=== PATIENT | male | born 1970 | race Caucasian/White ===

== ENCOUNTER 2021-01-31 13:02 | Inpatient (IN) ==
[2021-01-31] MEDS ORDERED: dexAMETHasone**PF** 10 MG/ML VIAL IV ONE (13:13)
[2021-01-31] MEDS ORDERED: SODIUM CHLORIDE 0.9% 1000ML 1,000 ML IV ONE (13:39)
--- NOTE | 2021-01-31 13:51 | Emergency Department Note ---
History of Present Illness General Chief complaint: Illness Stated complaint: COVID+, RAFAEL Siegel DR CARNEY Time Seen by Provider: 01/31/21 13:13 Source: patient History of Present Illness Provider complaint: Signs and Symptoms of COVID-19 (e.g., fever, dry cough, and/or SOB), no margi Onset (ago): day(s) (12) Location: chest Severity: moderate Pain Consistency: + intermittent Quality: + aching and + other (Fever and cough with malaise) Relieved By: + none Exacerbated By: + other (Exertion) Associated symptoms: + cough, + fever/chills, + headaches, + malaise and + shortness of breath (Only with exertion); no chest pain or no nausea/vomiting This is a 50-year-old male who was diagnosed with COVID-19 sent over from his doctor's office for low O2 saturation. The patient states that he got sick about 12 days ago. He developed a headache, malaise and fevers. He has a mild cough as well. He states he is only short of breath when he exerts himself but feels fine at rest. He has had no leg swelling or pain. He went to his doctor's office today and was found to have a O2 saturation in the 80s. He denies any loss of taste or smell or diarrhea. He has had no abdominal pain, vomiting, or urinary symptoms. He is not vaccinated for COVID-19. Allergies Allergy/AdvReac Type Severity Reaction Status Date / Time No Known Allergies Allergy Unverified 03/08/17 18:52 Past Med/Surg History Medical History (Updated 01/31/21 @ 15:50 by Gerri Martinez PA-C) Dyslipidemia Prediabetes Surgical History (Updated 01/31/21 @ 15:49 by Gerri Martinez PA-C) History of dental surgery Family History Other Multiple sclerosis Social History Smoking Status: Never smoker Hx Alcohol Use: Yes Alcohol type: beer Alcohol Intake Frequency: 2-3 x/Week Alcohol Intake Frequency Comment: no drink in past 12 days Hx Substance Use: No Preferred Language: French Feels Safe at Home: Yes Review of Systems See HPI for pertinent positives & negatives. and A total of 10 systems reviewed and were otherwise negative Physical Exam Vital Signs Vital Signs - 24 hr 01/31/21 13:07 01/31/21 13:35 01/31/21 13:49 Temperature 35.3 C L Temperature Source Temporal Artery Scan Pulse Rate 98 H 86 Pulse Rate from SpO2 Sensor Pulse Rhythm Regular Pulse Strength Normal Respiratory Rate 20 28 H Respiratory Effort / Characteristics Non-Labored Spontaneous Respiratory Depth Normal Respiratory Pattern Regular Blood Pressure 133/66 Blood Pressure Mean 88 Blood Pressure Position Sitting Pulse Oximetry 84 L 96 97 Oxygen Delivery Method Room Air Nasal Cannula Nasal Cannula Oxygen Flow Rate 3 3 Sepsis Recent Fever Within 48 Hours Yes Sepsis New/Unexplained Change in Mental Status No Sepsis Action Taken by Nursing No Action Required 01/31/21 14:00 01/31/21 14:30 01/31/21 15:00 Temperature Temperature Source Pulse Rate 87 80 86 Pulse Rate from SpO2 Sensor 86 Pulse Rhythm Pulse Strength Respiratory Rate 23 21 20 Respiratory Effort / Characteristics Respiratory Depth Respiratory Pattern Blood Pressure 127/81 125/87 Blood Pressure Mean 96 99 Blood Pressure Position Pulse Oximetry 97 95 96 Oxygen Delivery Method Nasal Cannula Nasal Cannula Room Air Oxygen Flow Rate 3 3 Sepsis Recent Fever Within 48 Hours Sepsis New/Unexplained Change in Mental Status Sepsis Action Taken by Nursing 01/31/21 15:30 01/31/21 16:00 01/31/21 16:30 Temperature Temperature Source Pulse Rate 87 82 78 Pulse Rate from SpO2 Sensor 87 82 77 Pulse Rhythm Pulse Strength Respiratory Rate 22 29 H 25 H Respiratory Effort / Characteristics Respiratory Depth Respiratory Pattern Blood Pressure 119/75 121/78 Blood Pressure Mean 89 92 Blood Pressure Position Pulse Oximetry 97 94 96 Oxygen Delivery Method Room Air Oxygen Flow Rate Sepsis Recent Fever Within 48 Hours Sepsis New/Unexplained Change in Mental Status Sepsis Action Taken by Nursing 01/31/21 17:00 Temperature Temperature Source Pulse Rate 81 Pulse Rate from SpO2 Sensor 85 Pulse Rhythm Pulse Strength Respiratory Rate 28 H Respiratory Effort / Characteristics Respiratory Depth Respiratory Pattern Blood Pressure 131/89 Blood Pressure Mean 103 Blood Pressure Position Pulse Oximetry 96 Oxygen Delivery Method Oxygen Flow Rate Sepsis Recent Fever Within 48 Hours Sepsis New/Unexplained Change in Mental Status Sepsis Action Taken by Nursing Constitutional: Vital signs reviewed. O2 saturation is 84% on room air. Eyes: Pupils are equal round reactive to light. Conjunctiva are noninjected. ENT: Pharynx is clear without erythema or exudate. Mucous membranes are dry. Neck supple without meningeal signs. Respiratory: Clear to auscultation bilaterally. Breath sounds are equal bilaterally. Cardiovascular: Regular rate and rhythm. No rubs or gallops. GI: Soft, nondistended and nontender. Bowel sounds are present. Musculoskeletal: No peripheral edema. No lower extremity tenderness. Integumentary: No cyanosis. or jaundice. Neurological: The patient is awake and alert. No focal deficits. Psychiatric: Normal affect. Not anxious appearing. Course Administered Medications Discontinued Medications Dexamethasone Sodium Phosphate (DexamethasonePf 10 Mg/Ml Vial) 6 mg IV NOW ONE Stop: 01/31/21 13:14 Last Admin: 01/31/21 13:52 Dose: 6 mg Documented by: [id number] Sodium Chloride (Nss 1000ml) 1,000 mls @ 999 mls/hr IV .Q1H1M ONE Stop: 01/31/21 14:39 Last Infusion: 01/31/21 14:50 Dose: 0 mls/hr Documented by: [id number] Admin: 01/31/21 13:52 Dose: 999 mls/hr Documented by: [id number] Ioversol (Optiray 320 125ml) 120 ml IV ONCE ONE Stop: 01/31/21 14:43 Last Admin: 01/31/21 14:43 Dose: 120 ml Documented by: [id number] Medical Decision Making Differential Diagnosis COVID-19, multifocal pneumonia, pulmonary embolism, myocarditis, pericarditis Medical Records Attestation: I reviewed the patient's medical records. I did perform a limited focused review of portions of the patient's old chart on the electronic medical record. The patient has had no recent pertinent visits to this hospital. Home Medications Current Medication List: was personally reviewed by me Laboratory Data Attestation: I reviewed the patient's lab results. Result diagrams: 01/31/21 13:47 01/31/21 13:47 Lab Results 01/31/21 01/31/21 01/31/21 Range/Units 13:47 13:47 13:47 WBC 7.34 (4.8-10.8) K/uL RBC 5.26 (4.7-6.1) M/uL Hgb 16.6 (14.0-18.0) g/dL Hct 47.1 (42-52) % MCV 89.5 (80-100) fL MCH 31.6 (25-34) pg MCHC 35.2 (32-36) g/dL RDW Std Deviation 42.5 (36.4-46.3) fL RDW Coeff of Simon 12.9 (11.5-14.5) % Plt Count 160 (130-400) K/uL MPV 10.4 (7.4-10.4) fL Immature Gran % (Auto) 1.0 % Neut % (Auto) 81.3 % Lymph % (Auto) 12.0 % Kay % (Auto) 5.4 % Eos % (Auto) 0.0 % Baso % (Auto) 0.3 % Neut # (Auto) 5.97 (1.4-6.5) K/uL Lymph # (Auto) 0.88 L (1.2-3.4) K/uL Kay # (Auto) 0.40 (0.11-0.59) K/uL Eos # (Auto) 0.00 (0-0.5) K/uL Baso # (Auto) 0.02 (0-0.2) K/uL Immature Gran # (Auto) 0.07 H (0.00-0.02) K/uL PT 10.0 (9.0-12.0) Seconds INR 1.0 (0.9-1.1) APTT 28.7 (21.0-31.0) Seconds PTT Ratio 1.1 D-Dimer 1290 H* (0-500) ug/L FEU Sodium 132 L (136-145) mmol/L Potassium 3.7 (3.5-5.1) mmol/L Chloride 96 L (98-107) mmol/L Carbon Dioxide 30 (21-32) mmol/L Anion Gap 6.0 (3-11) BUN 13 (7-18) mg/dl Creatinine 1.16 (0.6-1.4) mg/dl Est Cr Clr Drug Dosing 101.2 ml/min Est GFR ( Amer) 85.8 ml/min Est GFR (Non-Af Amer) 74.1 ml/min BUN/Creatinine Ratio 11.6 (10-20) Glucose 120 H (70-99) mg/dl Calcium 9.0 (8.5-10.1) mg/dl Total Bilirubin 0.6 (0.2-1) mg/dl AST 134 H (15-37) U/L ALT 108 H (12-78) U/L Alkaline Phosphatase 94 (45-117) U/L Troponin I < 0.015 (0-0.045) ng/ml C-Reactive Protein 7.42 H (0-0.29) mg/dl Total Protein 7.2 (6.4-8.2) gm/dl Albumin 3.1 L (3.4-5.0) gm/dl Globulin 4.1 H (2.5-4.0) gm/dl Albumin/Globulin Ratio 0.8 L (0.9-2) Urine Color Urine Appearance (Clear) Urine pH (4.5-7.5) Ur Specific Hartman (1.000-1.030) Urine Protein (Negative) Urine Glucose (UA) (Negative) Urine Ketones (Negative) Urine Blood (Negative) Urine Nitrite (Negative) Urine Bilirubin (Negative) Urine Urobilinogen (Negative) Ur Leukocyte Esterase (Negative) Urine WBC (Auto) (0-5) /hpf Urine RBC (Auto) (0-4) /hpf U Hyaline Cast (Auto) (0-5) /lpf U Epithel Cells (Auto) (0-5) /lpf Urine Bacteria (Auto) (Negative) COVID-19 Eval Order SARS-CoV-2 (PCR) (Negative) 01/31/21 01/31/21 01/31/21 Range/Units 13:47 14:52 16:15 WBC (4.8-10.8) K/uL RBC (4.7-6.1) M/uL Hgb (14.0-18.0) g/dL Hct (42-52) % MCV (80-100) fL MCH (25-34) pg MCHC (32-36) g/dL RDW Std Deviation (36.4-46.3) fL RDW Coeff of Simon (11.5-14.5) % Plt Count (130-400) K/uL MPV (7.4-10.4) fL Immature Gran % (Auto) % Neut % (Auto) % Lymph % (Auto) % Kay % (Auto) % Eos % (Auto) % Baso % (Auto) % Neut # (Auto) (1.4-6.5) K/uL Lymph # (Auto) (1.2-3.4) K/uL Kay # (Auto) (0.11-0.59) K/uL Eos # (Auto) (0-0.5) K/uL Baso # (Auto) (0-0.2) K/uL Immature Gran # (Auto) (0.00-0.02) K/uL PT (9.0-12.0) Seconds INR (0.9-1.1) APTT (21.0-31.0) Seconds PTT Ratio D-Dimer (0-500) ug/L FEU Sodium (136-145) mmol/L Potassium (3.5-5.1) mmol/L Chloride (98-107) mmol/L Carbon Dioxide (21-32) mmol/L Anion Gap (3-11) BUN (7-18) mg/dl Creatinine (0.6-1.4) mg/dl Est Cr Clr Drug Dosing ml/min Est GFR ( Amer) ml/min Est GFR (Non-Af Amer) ml/min BUN/Creatinine Ratio (10-20) Glucose (70-99) mg/dl Calcium (8.5-10.1) mg/dl Total Bilirubin (0.2-1) mg/dl AST (15-37) U/L ALT (12-78) U/L Alkaline Phosphatase (45-117) U/L Troponin I (0-0.045) ng/ml C-Reactive Protein Cancelled (0-0.29) mg/dl Total Protein (6.4-8.2) gm/dl Albumin (3.4-5.0) gm/dl Globulin (2.5-4.0) gm/dl Albumin/Globulin Ratio (0.9-2) Urine Color Dark Yellow Urine Appearance Clear (Clear) Urine pH 5.5 (4.5-7.5) Ur Specific Hartman > 1.045 H (1.000-1.030) Urine Protein 2+ H (Negative) Urine Glucose (UA) Negative (Negative) Urine Ketones Trace H (Negative) Urine Blood Negative (Negative) Urine Nitrite Negative (Negative) Urine Bilirubin Negative (Negative) Urine Urobilinogen Negative (Negative) Ur Leukocyte Esterase Negative (Negative) Urine WBC (Auto) 1-5 (0-5) /hpf Urine RBC (Auto) 0-4 (0-4) /hpf U Hyaline Cast (Auto) 10-30 H (0-5) /lpf U Epithel Cells (Auto) 20-30 H (0-5) /lpf Urine Bacteria (Auto) Negative (Negative) COVID-19 Eval Order Covid19 at [facility] SARS-CoV-2 (PCR) (Negative) 01/31/21 Range/Units 16:15 WBC (4.8-10.8) K/uL RBC (4.7-6.1) M/uL Hgb (14.0-18.0) g/dL Hct (42-52) % MCV (80-100) fL MCH (25-34) pg MCHC (32-36) g/dL RDW Std Deviation (36.4-46.3) fL RDW Coeff of Simon (11.5-14.5) % Plt Count (130-400) K/uL MPV (7.4-10.4) fL Immature Gran % (Auto) % Neut % (Auto) % Lymph % (Auto) % Kay % (Auto) % Eos % (Auto) % Baso % (Auto) % Neut # (Auto) (1.4-6.5) K/uL Lymph # (Auto) (1.2-3.4) K/uL Kay # (Auto) (0.11-0.59) K/uL Eos # (Auto) (0-0.5) K/uL Baso # (Auto) (0-0.2) K/uL Immature Gran # (Auto) (0.00-0.02) K/uL PT (9.0-12.0) Seconds INR (0.9-1.1) APTT (21.0-31.0) Seconds PTT Ratio D-Dimer (0-500) ug/L FEU Sodium (136-145) mmol/L Potassium (3.5-5.1) mmol/L Chloride (98-107) mmol/L Carbon Dioxide (21-32) mmol/L Anion Gap (3-11) BUN (7-18) mg/dl Creatinine (0.6-1.4) mg/dl Est Cr Clr Drug Dosing ml/min Est GFR ( Amer) ml/min Est GFR (Non-Af Amer) ml/min BUN/Creatinine Ratio (10-20) Glucose (70-99) mg/dl Calcium (8.5-10.1) mg/dl Total Bilirubin (0.2-1) mg/dl AST (15-37) U/L ALT (12-78) U/L Alkaline Phosphatase (45-117) U/L Troponin I (0-0.045) ng/ml C-Reactive Protein (0-0.29) mg/dl Total Protein (6.4-8.2) gm/dl Albumin (3.4-5.0) gm/dl Globulin (2.5-4.0) gm/dl Albumin/Globulin Ratio (0.9-2) Urine Color Urine Appearance (Clear) Urine pH (4.5-7.5) Ur Specific Hartman (1.000-1.030) Urine Protein (Negative) Urine Glucose (UA) (Negative) Urine Ketones (Negative) Urine Blood (Negative) Urine Nitrite (Negative) Urine Bilirubin (Negative) Urine Urobilinogen (Negative) Ur Leukocyte Esterase (Negative) Urine WBC (Auto) (0-5) /hpf Urine RBC (Auto) (0-4) /hpf U Hyaline Cast (Auto) (0-5) /lpf U Epithel Cells (Auto) (0-5) /lpf Urine Bacteria (Auto) (Negative) COVID-19 Eval Order SARS-CoV-2 (PCR) POSITIVE A* (Negative) Imaging Data Radiologist's Impression: Chest X-Ray 01/31/21 13:14 XR chest 1V portable HISTORY: 50 years-old Male Dyspnea acute shortness breath with weakness. COVID Positive. COMPARISON: Chest radiograph 03/08/2017 TECHNIQUE: Portable upright AP view the chest FINDINGS: Cardiac silhouette is upper limits of normal in size. Ill-defined bilateral airspace opacities are noted within a mid lung predominant distribution. No pneumothorax, pleural effusion or overt pulmonary edema. No acute fracture. IMPRESSION: Bilateral airspace opacities are suggestive of viral pneumonia. ACT 112: Negative or not required by law. The above report was generated using voice recognition software. It may contain grammatical, syntax or spelling errors. Electronically signed by: Dwayne Lopez M.D. 01/31/2021 2:25 PM Chest CTA 01/31/21 14:20 CHEST CTA for PULMONARY ARTERIES CT DOSE: 576.96 mGycm HISTORY: hypoxia covid eval for PE TECHNIQUE: Multiaxial CT images of the chest were performed following the intravenous administration of contrast to evaluate the pulmonary arteries. Maximal intensity projection images were also obtained. A dose lowering technique was utilized adhering to the principles of ALARA. COMPARISON STUDY: None. FINDINGS: Normal caliber thoracic aorta with no evidence for dissection. The heart is normal in size. No pleural or pericardial effusions. No filling defects within the pulmonary arteries to suggest a pulmonary embolus. Limited views of the upper abdomen demonstrate a normal liver, spleen, and adrenal glands. Normal esophagus. The thyroid gland enhances normally. Mild mediastinal and bilateral hilar lymphadenopathy. This is likely reactive. No suspicious lytic are blastic osseous lesions. No pneumothorax. The central airways are patent. Extensive multifocal groundglass airspace opacities seen throughout the lungs consistent with a viral pneumonia. IMPRESSION: 1. No evidence for pulmonary embolus. 2. Excessive groundglass airspace opacities seen throughout the lungs consistent with a multifocal viral pneumonia. 3. Mild mediastinal and bilateral hilar lymphadenopathy. This is likely reactive. ACT 112: Negative or not required by law. Electronically signed by: Allen Mishra M.D. 01/31/2021 2:58 PM ECG Data Attestation: I personally reviewed and interpreted this ECG as follows: Indication: + SOB/dyspnea Rate (beats per minute): 84 Rhythm: + normal sinus ECG [place]: + Normal ECG ST segments: + T-wave inversions ECG Findings: no PVCs MDM Narrative I did evaluate the patient as noted above. The patient was diagnosed with Covid about a week ago. He has had symptoms for about 12 days. He is sent here from his doctor's office because he is hypoxemic with a room air saturation of 84%. He was placed in isolation and given oxygen via nasal cannula. IV access was established. I did place an order for continuous cardiac monitoring. The monitor showed normal sinus rhythm at a rate of 80 bpm. I did order and personally review the patient's 12-lead EKG as described above. He has some nonspecific T wave changes. He denies having any chest discomfort. He states he is only short of breath when he exerts himself. I did order and personally reviewed the images of the patient's chest x-ray as described above. He does appear to have a multifocal pneumonia. I did treat him with Decadron 6 mg IV. I did order and review the patient's blood work as noted in the electronic medical record. CBC is unremarkable without leukocytosis or anemia. El ectrolytes demonstrate a sodium of 132 and chloride of 96. LFTs demonstrate elevation of his transaminases with a AST of 134 and ALT of 108. Troponin is negative. C-reactive protein is 7.4 and his D-dimer is 1290. I did discuss the test results with patient. He is agreeable to CT angiogram of the chest to rule out PE. I did order a CT angiogram of the chest. I did review the images myself as well as the radiology report as described above. There is no evidence of pulmonary embolism. I did discuss the test results with patient. He will be hospitalized for further care and evaluation. I did discuss case with the hospitalist and lining caser. Impression & Plan Hypoxemia, Multifocal pneumonia, Pneumonia due to 2019 novel coronavirus, Acute hyponatremia, Abnormal LFTs Discharge Plan Visit Data Chief Complaint: Illness Stated Complaint: COVID+, LOW 02, DR REF ED Provider: Phoenix Sadler Discharge Problem: Hypoxemia, Multifocal pneumonia, Pneumonia due to 2019 novel coronavirus, Acute hyponatremia, Abnormal LFTs Patient Disposition: Being Evaluated by Hospitalist Forms Stand Alone Forms: My [facility] [address] Referrals Referrals: Teodoro Dorman MD [Primary Care Provider] -
[2021-01-31 13:57] LABS: Basophils # (auto) 0.02 K/uL (0-0.2); Basophils % (auto) 0.3 %; Hematocrit (blood only) 47.1 % (42-52); Hemoglobin 16.6 g/dL (14.0-18.0); Immature Granulocytes # (auto) 0.07 K/uL (0.00-0.02); Lymphocytes # (auto) 0.88 K/uL (1.2-3.4); Mean Corpuscular Hemoglobin 31.6 pg (25-34); Mean Corpuscular Hgb Conc 35.2 g/dL (32-36); Mean Corpuscular Volume 89.5 fL (80-100); Mean Platelet Volume 10.4 fL (7.4-10.4); Monocytes % (auto) 5.4 %; Neutrophils # (auto) 5.97 K/uL (1.4-6.5); Neutrophils % (auto) 81.3 %; Platelet Count 160 K/uL (130-400); RDW Coefficient of Variation 12.9 % (11.5-14.5); RDW Standard Deviation 42.5 fL (36.4-46.3); Red Blood Count 5.26 M/uL (4.7-6.1); White Blood Count 7.34 K/uL (4.8-10.8)
[2021-01-31 14:09] LABS: Partial Thromboplastin Ratio 1.1; Partial Thromboplastin Time 28.7 Seconds (21.0-31.0)
[2021-01-31 14:14] LABS: D Dimer 1290 ug/L FEU (0-500)
[2021-01-31 14:16] LABS: Alanine Aminotransferase 108 U/L (12-78); Albumin Level 3.1 gm/dl (3.4-5.0); Aspartate Aminotransferase 134 U/L (15-37); BUN Creatinine Ratio 11.6 (10-20); Blood Urea Nitrogen 13 mg/dl (7-18); C Reactive Protein 7.42 mg/dl (0-0.29); Carbon Dioxide 30 mmol/L (21-32); Chloride 96 mmol/L (98-107); Creatinine Clr Calc Pharmacy 101.2 ml/min; Est GFR (African American) 85.8 ml/min; Est GFR (Non-African American) 74.1 ml/min; Glucose 120 mg/dl (70-99); Potassium 3.7 mmol/L (3.5-5.1); Sodium 132 mmol/L (136-145)
[2021-01-31 14:21] LABS: Albumin Globulin Ratio 0.8 (0.9-2); Alkaline Phosphatase 94 U/L (45-117); Bilirubin,Total 0.6 mg/dl (0.2-1); Globulin 4.1 gm/dl (2.5-4.0); Total Protein 7.2 gm/dl (6.4-8.2); Troponin I < 0.015 ng/ml (0-0.045)
--- NOTE | 2021-01-31 14:26 | XRay Report ---
XR chest 1V portable HISTORY: 50 years-old Male Dyspnea acute shortness breath with weakness. COVID Positive. COMPARISON: Chest radiograph 03/08/2017 TECHNIQUE: Portable upright AP view the chest FINDINGS: Cardiac silhouette is upper limits of normal in size. Ill-defined bilateral airspace opacities are no scott within a mid lung predominant distribution. No pneumothorax, pleural effusion or overt pulmonary edema. No acute fracture. IMPRESSION: Bilateral airspace opacities are suggestive of viral pneumonia. ACT 112: Negative or not required by law. The above report was generated using voice recognition software. It may contain grammatical, syntax o r spelling errors. Electronically signed by: Dwayne Lopez M.D. 01/31/2021 2:25 PM
[2021-01-31] MEDS ORDERED: OPTIRAY 320 125ml IV ONE (14:42)
--- NOTE | 2021-01-31 14:59 | CT Scan Report ---
CHEST CTA for PULMONARY ARTERIES CT DOSE: 576.96 mGycm HISTORY: hypoxia covid eval for PE TECHNIQUE: Multiaxial CT images of the chest were performed following the intravenous administration of contrast to evaluate the pulmonary arteries. Maximal intensity projection images were also obtaine d. A dose lowering technique was utilized adhering to the principles of ALARA. COMPARISON STUDY: None. FINDINGS: Normal caliber thoracic aorta with no evidence for dissection. The heart is normal in size. No pleural or pericardial effusions. No filling defects within the pulmonary arteries to suggest a p ulmonary embolus. Limited views of the upper abdomen demonstrate a normal liver, spleen, and adrenal glands. Normal esophagus. The thyroid gland enhances normally. Mild mediastinal and bilateral hilar l ymphadenopathy. This is likely reactive. No suspicious lytic are blastic osseous lesions. No pneumoth orax. The central airways are patent. Extensive multifocal groundglass airspace opacities seen throug hout the lungs consistent with a viral pneumonia. IMPRESSION: 1. No evidence for pulmonary embolus. 2. Excessive groundglass airspace opacities seen throughout the lungs consistent with a multifocal vi ral pneumonia. 3. Mild mediastinal and bilateral hilar lymphadenopathy. This is likely reactive. ACT 112: Negative or not required by law. Electronically signed by: Allen Mishra M.D. 01/31/2021 2:58 PM
[2021-01-31 15:18] LABS: Appearance Urine Clear (Clear); Bacteria Urine Automated Negative (Negative); Bilirubin Urine Negative (Negative); Blood Urine Negative (Negative); Color Urine Dark Yellow; Epithelial Cell Urine Auto 20-30 /lpf (0-5); Glucose Urine UA Negative (Negative); Ketones Urine Trace (Negative); Leukocyte Esterase Urine Negative (Negative); Nitrite Urine Negative (Negative); Protein Urine 2+ (Negative); RBC Urine Automated 0-4 /hpf (0-4); Specific Gravity Urine > 1.045 (1.000-1.030); Urobilinogen Urine Negative (Negative); pH Urine 5.5 (4.5-7.5)
--- NOTE | 2021-01-31 15:51 | History & Physical Report ---
Date of Service January 31, 2021 Assessment & Plan (1) Acute respiratory failure with hypoxia: (2) Pneumonia due to 2019 novel coronavirus: Plan: This is a 50-year-old male with PMH of prediabetes and dyslipidemia who presents with worsening dyspnea on exertion and hypoxia and was found to have covid pneumonia. Developed symptoms 12 days ago and had a positive Covid test last week on 01/25 Became dyspneic with exertion over past few days, hypoxic at 82% at PCP's office today Afebrile, no leukocytosis, CRP 7.42 Chest CTA with no evidence for pulmonary embolus. Excessive ground glass airspace opacities seen throughout the lungs consistent with a multifocal viral pneumonia Given dexamethasone IV 6mg, plan to continue daily, outside the window for Remdesivir, supplemental O2 (3) Abnormal LFTs: Plan: AST 134, ALT, possibly reactive in setting of covid. No N/V or abdominal pain. +History of moderate alcohol use Monitor LFTs (4) Prediabetes: Plan: Diet controlled (5) Dyslipidemia: Plan: Diet controlled DVT Ppx: SQ Lovenox Code status: FULL PCP: Lakia Dispo: Admitted to PCU Patient seen in collaboration with Dr. Samaniego. Please see addendum. History of Present Illness Chief Complaint: Dyspnea on exertion, hypoxia Primary Care Provider: Teodoro Dorman MD This is a 50-year-old male with PMH of prediabetes and dyslipidemia who presents with worsening dyspnea on exertion and hypoxia. and children whom he lives with have had Covid recently. Patient became symptomatic on 12 days ago and had a positive Covid test last week on 01/25. First developed severe headache and fever. Headache has resolved but fever and chills have persisted and patient has since developed generalized weakness, had difficulty sleeping and reduced appetite. Has been tolerating Ensure shakes and trying to stay hydrated with water and Gatorade. Has been alternating Tylenol and Advil for fevers. Also endorses dry cough and dyspnea on exertion over the past 4 days. Still has sense of taste and smell. Went to see PCP earlier today and was found to be hypoxic at 82% on room air. Was sent to ED for further evaluation. Does not take any medications regularly. Did not receive Covid vaccine. Denies any lightheadedness, chest pain, palpitations, wheezing, dysuria, diarrhea or constipation. Allergies Allergy/AdvReac Type Severity Reaction Status Date / Time No Known Allergies Allergy Unverified 03/08/17 18:52 Past Med/Surg History Medical History (Updated 01/31/21 @ 15:50 by Gerri Martinez PA-C) Dyslipidemia Prediabetes Surgical History (Updated 01/31/21 @ 15:49 by Gerri Martinez PA-C) History of dental surgery Family History Other Multiple sclerosis Social History Smoking Status: Never smoker Hx Alcohol Use: Yes Alcohol type: beer Alcohol Intake Frequency: 2-3 x/Week Alcohol Intake Frequency Comment: no drink in past 12 days Hx Substance Use: No Preferred Language: Danish Feels Safe at Home: Yes Review of Systems Review of Systems: At least ten systems reviewed and negative except as noted in the HPI. Physical Exam Physical Exam: Please see Dr. Samaniego's addendum for physical exam. Results & Data Results & Data ([facility]) Vital Signs (Past 12 Hours) Vital Signs Temp Pulse Resp BP Pulse Ox 01/31/21 15:30 87 22 119/75 97 01/31/21 15:00 86 20 125/87 96 01/31/21 14:30 80 21 127/81 95 01/31/21 14:00 87 23 97 01/31/21 13:49 97 01/31/21 13:35 86 28 H 96 01/31/21 13:07 35.3 C L 98 H 20 133/66 84 L Laboratory Results Short CBC 01/31/21 Range/Units 13:47 WBC 7.34 (4.8-10.8) K/uL Hgb 16.6 (14.0-18.0) g/dL Hct 47.1 (42-52) % Plt Count 160 (130-400) K/uL BMP 01/31/21 13:47 Sodium 132 L Potassium 3.7 Chloride 96 L Carbon Dioxide 30 BUN 13 Creatinine 1.16 Glucose 120 H Calcium 9.0 Cardiac Enzymes 01/31/21 Range/Units 13:47 Troponin I < 0.015 (0-0.045) ng/ml Liver Function 01/31/21 Range/Units 13:47 Total Bilirubin 0.6 (0.2-1) mg/dl AST 134 H (15-37) U/L ALT 108 H (12-78) U/L Alkaline Phosphatase 94 (45-117) U/L Albumin 3.1 L (3.4-5.0) gm/dl Urine 01/31/21 Range/Units 14:52 Urine Color Dark Yellow Urine Appearance Clear (Clear) Urine pH 5.5 (4.5-7.5) Ur Specific [place] > 1.045 H (1.000-1.030) Urine Protein 2+ H (Negative) Urine Glucose (UA) Negative (Negative) Diagnostic Findings Chest X-Ray 01/31/21 13:14 XR chest 1V portable HISTORY: 50 years-old Male Dyspnea acute shortness breath with weakness. COVID Positive. COMPARISON: Chest radiograph 03/08/2017 TECHNIQUE: Portable upright AP view the chest FINDINGS: Cardiac silhouette is upper limits of normal in size. Ill-defined bilateral airspace opacities are noted within a mid lung predominant distribution. No pneumothorax, pleural effusion or overt pulmonary edema. No acute fracture. IMPRESSION: Bilateral airspace opacities are suggestive of viral pneumonia. ACT 112: Negative or not required by law. The above report was generated using voice recognition software. It may contain grammatical, syntax or spelling errors. Electronically signed by: Dwayne Lopez M.D. 01/31/2021 2:25 PM Chest CTA 01/31/21 14:20 CHEST CTA for PULMONARY ARTERIES CT DOSE: 576.96 mGycm HISTORY: hypoxia covid eval for PE TECHNIQUE: Multiaxial CT images of the chest were performed following the intravenous administration of contrast to evaluate the pulmonary arteries. Maximal intensity projection images were also obtained. A dose lowering technique was utilized adhering to the principles of ALARA. COMPARISON STUDY: None. FINDINGS: Normal caliber thoracic aorta with no evidence for dissection. The heart is normal in size. No pleural or pericardial effusions. No filling defects within the pulmonary arteries to suggest a pulmonary embolus. Limited views of the upper abdomen demonstrate a normal liver, spleen, and adrenal glands. Normal esophagus. The thyroid gland enhances normally. Mild mediastinal and bilateral hilar lymphadenopathy. This is likely reactive. No suspicious lytic are blastic osseous lesions. No pneumothorax. The central airways are patent. Extensive multifocal groundglass airspace opacities seen throughout the lungs consistent with a viral pneumonia. IMPRESSION: 1. No evidence for pulmonary embolus. 2. Excessive groundglass airspace opacities seen throughout the lungs consistent with a multifocal viral pneumonia. 3. Mild mediastinal and bilateral hilar lymphadenopathy. This is likely reactive. ACT 112: Negative or not required by law. Electronically signed by: Allen Mishra M.D. 01/31/2021 2:58 PM Medications Administered NSR, TWI in III Code Status & VTE Plan VTE Prophylaxis Plan VTE Prophylaxis will be ordered: Yes Supervising Physician Co-Signing Physician Notes Pt is a 50M with hx of prediabetes, HLD and recent COVID dx admitted for COVID pneumonia with hypoxia. Exam: NC in place, NAD Card: normal S1/S2, no murmur Lungs: fair air entry b/l Abd: ND, soft, NT LE: no edema Psych: AAOx3 A/P: Hypoxic Respiratory failure: - 2/2 COVID pneumonia -Tested positive for COVID on: 01/25 but symptoms started on 01/20 -CTA chest: no PE - D-dimer of 1290 - Elevated LFTs: will monitor CMP - continue the pt on oxygen supplement via NC - started him on dexamethasone IV daily -encourage frequent change of position (including proning) -daily CMP and CRP -DVT ppx ordered: Lovenox Agree with plan as above per Gerri Martinez PA-C
[2021-01-31] MEDS ORDERED: ONDANSETRON INJ 2 MG/ML 2 ML VIAL IV PRN (20:30)
[2021-01-31] MEDS ORDERED: POLYETHYLENE (MIRALAX) 17 GM PACK PO PRN (20:30)
[2021-01-31] MEDS ORDERED: ACETAMINOPHEN 325 MG TAB PO PRN (20:30)
[2021-01-31] MEDS: ENOXAPARIN INJ 40 MG/0.4 ML SYR SQ SCH (21:23)
[2021-02-01] MEDS ORDERED: BENZONATATE 100 MG CAPSULE PO PRN (03:57)
[2021-02-01] MEDS ORDERED: CHLORASEPTIC 1.4% SOLN 180 ML BTL MT PRN (03:58)
--- NOTE | 2021-02-01 05:25 | Electrocardiogram Report ---
Test Reason : Blood Pressure : / mmHG Vent. Rate : 084 BPM Atrial Rate : 084 BPM P-R Int : 126 ms QRS Dur : 090 ms QT Int : 358 ms P-R-T Axes : 036 044 007 degrees QTc Int : 423 ms Poor data quality, interpretation may be adversely affected Normal sinus rhythm Possible Left atrial enlargement Nonspecific T wave abnormality Abnormal ECG When compared with ECG of 08-MAR-2017 18:29, Inverted T waves have replaced nonspecific T wave abnormality in Inferior leads Nonspecific T wave abnormality, worse in Anterolateral leads Confirmed by Dakota Singh ([id number]) on 02/01/2021 5:25:27 AM Referred By: Confirmed By:Dakota Singh
[2021-02-01 07:06] LABS: Hematocrit (blood only) 44.5 % (42-52); Hemoglobin 15.5 g/dL (14.0-18.0); Mean Corpuscular Hemoglobin 31.3 pg (25-34); Mean Corpuscular Hgb Conc 34.8 g/dL (32-36); Mean Corpuscular Volume 89.7 fL (80-100); Mean Platelet Volume 10.4 fL (7.4-10.4); Platelet Count 179 K/uL (130-400); RDW Coefficient of Variation 12.9 % (11.5-14.5); RDW Standard Deviation 42.2 fL (36.4-46.3); Red Blood Count 4.96 M/uL (4.7-6.1); White Blood Count 5.58 K/uL (4.8-10.8)
[2021-02-01 07:58] LABS: BUN Creatinine Ratio 13.1 (10-20); Calcium 8.7 mg/dl (8.5-10.1); Est GFR (African American) 106.6 ml/min; Est GFR (Non-African American) 91.9 ml/min; Potassium 4.1 mmol/L (3.5-5.1)
[2021-02-01] MEDS: dexAMETHasone 6 MG in SYRINGE 0 ML IV SCH (08:43)
[2021-02-01 10:18] LABS: Albumin Level 3.1 gm/dl (3.4-5.0); Bilirubin,Total 0.8 mg/dl (0.2-1)
[2021-02-01 10:29] LABS: Bilirubin Direct 0.2 mg/dl (0-0.2)
[2021-02-01] MEDS ORDERED: FUROSEMIDE 40 MG/4 ML VIAL IV ONE (13:14)
--- NOTE | 2021-02-01 14:25 | Hospitalist Progress Note ---
Date of Service February 01, 2021 Assessment & Plan (1) Acute respiratory failure with hypoxia: (2) Pneumonia due to 2019 novel coronavirus: Plan: This is a 50-year-old male with PMH of prediabetes and dyslipidemia who presents with worsening dyspnea on exertion and hypoxia and was found to have covid pneumonia. Developed symptoms 12 days ago and had a positive Covid test last week on 01/25 Became dyspneic with exertion over past few days, hypoxic at 82% at PCP's office today Afebrile, no leukocytosis, CRP 7.42 Chest CTA with no evidence for pulmonary embolus. Excessive ground glass airspace opacities seen throughout the lungs consistent with a multifocal viral pneumonia Given dexamethasone IV 6mg, plan to continue daily, outside the window for Remdesivir, supplemental O2 Remdesivir was not given due to hepatic impairment and also does not meet the cr iteria Clinically better and will give a small dose of Lasix to keep him on the soda drier feeder side Continue with cough medications and oxygen supplementation (3) Abnormal LFTs: Plan: AST 134, ALT, possibly reactive in setting of covid. No N/V or abdominal pain. +History of moderate alcohol use Monitor LFTs-LFTs remains elevated which could be secondary to fatty liver disease Will get hepatitis panel May need to do ultrasound of the liver (4) Prediabetes: Plan: Diet controlled (5) Dyslipidemia: Plan: Diet controlled DVT Ppx: SQ Lovenox Code status: FULL PCP: Lakia Dispo: Admitted to PCU Admission and Anticipated Discharge Date Admission Date: January 31, 2021 Subjective 02/01/2021 The patient was seen and examined in telemetry unit and in the Covid room He has been feeling much better today and is requiring about 5 L of oxygen to maintain saturation Has minimal cough and has been ambulating in the room without much difficulty Review of Systems Review of Systems: All systems reviewed and are unremarkable except as noted below Respiratory: Minimal shortness of breath at rest Musculoskeletal: Generally weak Physical Exam Physical Exam: Sitting on a chair with minimal shortness of breath Constitutional: well developed, well nourished, + ill appearing and + obese Eyes: PERRL, conjunctivae normal, anicteric sclerae ENMT: external ear and nose normal, oropharynx normal Neck: trachea midline, no thyromegaly Respiratory: + respiratory distress (Minimal distress at rest) Auscultation: + diminished lung sounds and + crackles (Minimal crackles at the bases) Cardiovascular: Rate/Rhythm: regular rate and regular rhythm; not tachycardic Heart Sounds: normal S1 and normal S2; no murmur Extremities: + edema (Trace edema bilaterally) Gastrointestinal (Abdomen): Inspection/Auscultation: normal bowel sounds; abdomen not distended Percussion/Palpation: abdomen soft; abdomen nontender Musculoskeletal: No acute arthritis in any joint Neurologic: Alert, awake and oriented x3. Generally weak without any focal neuro deficit Psychiatric: A+Ox3, euthymic affect Lymphatic: no cervical or axillary lymphadenopathy Results & Data Results & Data ([facility]) Vital Signs (Past 12 Hours) Vital Signs Temp Pulse Pulse Resp BP Pulse Ox 02/01/21 12:08 36.9 C 72 24 122/80 91 02/01/21 08:18 64 02/01/21 07:56 36.7 C 76 30 H 116/71 91 02/01/21 03:50 36.8 C 79 22 118/77 89 L Laboratory Results Short CBC 02/01/21 Range/Units 06:49 WBC 5.58 (4.8-10.8) K/uL Hgb 15.5 (14.0-18.0) g/dL Hct 44.5 (42-52) % Plt Count 179 (130-400) K/uL BMP 02/01/21 06:49 Sodium 135 L Potassium 4.1 Chloride 100 Carbon Dioxide 27 BUN 13 Creatinine 0.97 Glucose 124 H Calcium 8.7 Cardiac Enzymes 01/31/21 Range/Units 13:47 Troponin I < 0.015 (0-0.045) ng/ml Liver Function 01/31/21 02/01/21 Range/Units 13:47 06:49 Total Bilirubin 0.6 0.8 (0.2-1) mg/dl Direct Bilirubin 0.2 (0-0.2) mg/dl AST 131 H (15-37) U/L ALT 107 H (12-78) U/L Alkaline Phosphatase 94 89 (45-117) U/L Albumin 3.1 L (3.4-5.0) gm/dl Urine 01/31/21 Range/Units 14:52 Urine Color Dark Yellow Urine Appearance Clear (Clear) Urine pH 5.5 (4.5-7.5) Ur Specific [place] > 1.045 H (1.000-1.030) Urine Protein 2+ H (Negative) Urine Glucose (UA) Negative (Negative) Medications Administered Current Inpatient Medications Acetaminophen (Acetaminophen 325 Mg Tab) 650 mg PO Q4H PRN PRN Reason: Pain or Fever Stop: 03/02/21 20:29 Benzonatate (Benzonatate 100 Mg Capsule) 100 mg PO TID PRN PRN Reason: Cough Stop: 03/03/21 03:56 Enoxaparin Sodium (Enoxaparin Inj 40 Mg/0.4 Ml Syr) 40 mg SQ Q24H KEEGAN Stop: 03/02/21 20:59 Last Admin: 01/31/21 21:23 Dose: 40 mg Documented by: Dexamethasone 6 mg/ Syringe 1.5 mls @ 1 mls/min IV DAILY KEEGAN Stop: 02/11/21 08:59 Last Admin: 02/01/21 08:43 Dose: 1 mls/min Documented by: Ondansetron HCl (Ondansetron Inj 2 Mg/Ml 2 Ml Vial) 4 mg IV Q6H PRN PRN Reason: Nausea Stop: 03/02/21 20:29 Phenol (Chloraseptic 1.4% Soln 180 Ml Btl) 1 sprays MT Q2H PRN PRN Reason: throat discomfort Stop: 03/03/21 03:57 Polyethylene Glycol (Polyethylene (Miralax) 17 Gm Pack) 17 gm PO DAILY PRN PRN Reason: Constipation Stop: 03/02/21 20:29
[2021-02-01] MEDS: ENOXAPARIN INJ 40 MG/0.4 ML SYR SQ SCH (20:24)
[2021-02-02 06:28] LABS: Hematocrit (blood only) 46.9 % (42-52); Mean Corpuscular Hemoglobin 30.9 pg (25-34); Mean Corpuscular Hgb Conc 34.1 g/dL (32-36); Mean Corpuscular Volume 90.7 fL (80-100); Platelet Count 224 K/uL (130-400); RDW Coefficient of Variation 12.9 % (11.5-14.5); Red Blood Count 5.17 M/uL (4.7-6.1)
[2021-02-02 06:52] LABS: BUN Creatinine Ratio 21.5 (10-20); Calcium 8.5 mg/dl (8.5-10.1); Creatinine Clr Calc Pharmacy 108.8 ml/min; Est GFR (African American) 93.6 ml/min; Est GFR (Non-African American) 80.7 ml/min; Magnesium 2.4 mg/dl (1.8-2.4); Potassium 3.9 mmol/L (3.5-5.1)
[2021-02-02] MEDS: dexAMETHasone 6 MG in SYRINGE 0 ML IV SCH (08:42)
[2021-02-02 09:56] LABS: Hepatitis B Surf Ag Rflx Conf Neg (Neg)
[2021-02-02 10:25] LABS: Hepatitis C IgG 13Yrs+Old_Rflx Neg (Neg)
[2021-02-02] MEDS ORDERED: FUROSEMIDE 40 MG/4 ML VIAL IV ONE (14:42)
--- NOTE | 2021-02-02 14:42 | Hospitalist Progress Note ---
Date of Service February 02, 2021 Assessment & Plan (1) Acute respiratory failure with hypoxia: (2) Pneumonia due to 2019 novel coronavirus: Plan: This is a 50-year-old male with PMH of prediabetes and dyslipidemia who presents with worsening dyspnea on exertion and hypoxia and was found to have covid pneumonia. Developed symptoms 12 days ago and had a positive Covid test last week on 01/25 Became dyspneic with exertion over past few days, hypoxic at 82% at PCP's office today Afebrile, no leukocytosis, CRP 7.42 Chest CTA with no evidence for pulmonary embolus. Excessive ground glass airspace opacities seen throughout the lungs consistent with a multifocal viral pneumonia Given dexamethasone IV 6mg, plan to continue daily, outside the window for Remdesivir, supplemental O2 Remdesivir was not given due to hepatic impairment and also does not meet the cr iteria Clinically better and will give a small dose of Lasix to keep him on the veneer redrier side Clinically not any better and has been requiring up to 5 L of oxygen to maintain saturation We will give another dose of Lasix today and monitor electrolytes and inflammatory markers (3) Abnormal LFTs: Plan: AST 134, ALT, possibly reactive in setting of covid. No N/V or abdominal pain. +History of moderate alcohol use Monitor LFTs-LFTs remains elevated which could be secondary to fatty liver disease Will get hepatitis panel-pending May need to do ultrasound of the liver-we will check LFT tomorrow (4) Prediabetes: Plan: Diet controlled (5) Dyslipidemia: Plan: Diet controlled DVT Ppx: SQ Lovenox Code status: FULL PCP: Lakia Dispo: Admitted to PCU Admission and Anticipated Discharge Date Admission Date: January 31, 2021 Subjective 02/01/2021 The patient was seen and examined in telemetry unit and in the Covid room He has been feeling much better today and is requiring about 5 L of oxygen to maintain saturation Has minimal cough and has been ambulating in the room without much difficulty 02/02/2021 The patient was seen and examined in telemetry unit and in the Covid room He has been requiring more oxygen today to maintain saturation Has cough and has been trying to move around in the room with difficulty due to shortness of breath Review of Systems Review of Systems: All systems reviewed and are unremarkable except as noted below Respiratory: Minimal shortness of breath at rest Musculoskeletal: Generally weak Physical Exam Physical Exam: Sitting on a chair with minimal shortness of breath Constitutional: well developed, well nourished, + ill appearing and + obese Eyes: PERRL, conjunctivae normal, anicteric sclerae ENMT: external ear and nose normal, oropharynx normal Neck: trachea midline, no thyromegaly Respiratory: + respiratory distress (Minimal distress at rest) Auscultation: + diminished lung sounds and + crackles (Minimal crackles at the bases) Cardiovascular: Rate/Rhythm: regular rate and regular rhythm; not tachycardic Heart Sounds: normal S1 and normal S2; no murmur Extremities: + edema (Trace edema bilaterally) Gastrointestinal (Abdomen): Inspection/Auscultation: normal bowel sounds; abdomen not distended Percussion/Palpation: abdomen soft; abdomen nontender Musculoskeletal: Arthritis in any joint Neurologic: Alert awake and oriented x3. Generally weak but no focal sensory and motor deficit appreciated Psychiatric: A+Ox3, euthymic affect Lymphatic: no cervical or axillary lymphadenopathy Results & Data Results & Data ([facility]) Vital Signs (Past 12 Hours) Vital Signs Temp Pulse Pulse Resp BP Pulse Ox 02/02/21 11:42 36.6 C 73 19 104/66 89 L 02/02/21 08:00 67 02/02/21 07:23 36.7 C 77 20 104/60 89 L 02/02/21 04:33 36.9 C 64 19 103/66 88 L Laboratory Results Short CBC 02/02/21 Range/Units 06:05 WBC 9.00 (4.8-10.8) K/uL Hgb 16.0 (14.0-18.0) g/dL Hct 46.9 (42-52) % Plt Count 224 (130-400) K/uL BMP 02/02/21 06:05 Sodium 137 Potassium 3.9 Chloride 100 Carbon Dioxide 30 BUN 23 H D Creatinine 1.08 Glucose 123 H Calcium 8.5 Medications Administered Current Inpatient Medications Acetaminophen (Acetaminophen 325 Mg Tab) 650 mg PO Q4H PRN PRN Reason: Pain or Fever Stop: 03/02/21 20:29 Benzonatate (Benzonatate 100 Mg Capsule) 100 mg PO TID PRN PRN Reason: Cough Stop: 03/03/21 03:56 Last Admin: 02/02/21 04:31 Dose: 100 mg Documented by: Enoxaparin Sodium (Enoxaparin Inj 40 Mg/0.4 Ml Syr) 40 mg SQ Q24H KEEGAN Stop: 03/02/21 20:59 Last Admin: 02/01/21 20:24 Dose: 40 mg Documented by: Dexamethasone 6 mg/ Syringe 1.5 mls @ 1 mls/min IV DAILY KEEGAN Stop: 02/11/21 08:59 Last Admin: 02/02/21 08:42 Dose: 1 mls/min Documented by: Ondansetron HCl (Ondansetron Inj 2 Mg/Ml 2 Ml Vial) 4 mg IV Q6H PRN PRN Reason: Nausea Stop: 03/02/21 20:29 Phenol (Chloraseptic 1.4% Soln 180 Ml Btl) 1 sprays MT Q2H PRN PRN Reason: throat discomfort Stop: 03/03/21 03:57 Polyethylene Glycol (Polyethylene (Miralax) 17 Gm Pack) 17 gm PO DAILY PRN PRN Reason: Constipation Stop: 03/02/21 20:29
[2021-02-02] MEDS: ENOXAPARIN INJ 40 MG/0.4 ML SYR SQ SCH (20:00)
[2021-02-03 04:40] LABS: Hepatitis A Antibody IgM NON-REACTIVE (NON-REACTIVE); Hepatitis B Core Antibody IgM NON-REACTIVE (NON-REACTIVE)
[2021-02-03 07:30] LABS: BUN Creatinine Ratio 22.7 (10-20); Bilirubin Direct 0.2 mg/dl (0-0.2); Bilirubin,Total 0.9 mg/dl (0.2-1); Calcium 8.8 mg/dl (8.5-10.1); Creatinine Clr Calc Pharmacy 102.3 ml/min; Est GFR (African American) 87.7 ml/min; Est GFR (Non-African American) 75.6 ml/min; Magnesium 2.6 mg/dl (1.8-2.4); Potassium 3.7 mmol/L (3.5-5.1); Total Protein 6.8 gm/dl (6.4-8.2)
[2021-02-03 07:31] LABS: Phosphorus 3.8 mg/dl (2.5-4.9)
[2021-02-03] MEDS: dexAMETHasone 6 MG in SYRINGE 0 ML IV SCH (09:01)
[2021-02-03] MEDS ORDERED: FUROSEMIDE 40 MG/4 ML VIAL IV ONE (15:13)
--- NOTE | 2021-02-03 15:13 | Hospitalist Progress Note ---
Date of Service February 03, 2021 Assessment & Plan (1) Acute respiratory failure with hypoxia: (2) Pneumonia due to 2019 novel coronavirus: Plan: This is a 50-year-old male with PMH of prediabetes and dyslipidemia who presents with worsening dyspnea on exertion and hypoxia and was found to have covid pneumonia. Developed symptoms 12 days ago and had a positive Covid test last week on 01/25 Became dyspneic with exertion over past few days, hypoxic at 82% at PCP's office today Afebrile, no leukocytosis, CRP 7.42 Chest CTA with no evidence for pulmonary embolus. Excessive ground glass airspace opacities seen throughout the lungs consistent with a multifocal viral pneumonia Given dexamethasone IV 6mg, plan to continue daily, outside the window for Remdesivir, supplemental O2 Remdesivir was not given due to hepatic impairment and also does not meet the cr iteria Clinically better and will give a small dose of Lasix to keep him on the sand drier side Clinically not any better and has been requiring up to 5 L of oxygen to maintain saturation His inflammatory markers are not greatly elevated We will give him another dose of Lasix today 02/03/2021 (3) Abnormal LFTs: Plan: AST 134, ALT, possibly reactive in setting of covid. No N/V or abdominal pain. +History of moderate alcohol use Monitor LFTs-LFTs remains elevated which could be secondary to fatty liver disease Will get hepatitis panel-hepatitis A, B and C are negative LFTs remains elevated and does not have any acute cholecystitis signs and or symptoms Ultrasound cannot be done and the high LFTs could be secondary to Covid 19 i nfection itself We will get Dev-Lloyd B virus and CMV virus serology Monitor LFTs (4) Prediabetes: Plan: Diet controlled LFTs could be secondary to fatty liver (5) Dyslipidemia: Plan: Diet controlled DVT Ppx: SQ Lovenox Code status: FULL PCP: Lakia Dispo: Admitted to PCU Admission and Anticipated Discharge Date Admission Date: January 31, 2021 Subjective 02/01/2021 The patient was seen and examined in telemetry unit and in the Covid room He has been feeling much better today and is requiring about 5 L of oxygen to maintain saturation Has minimal cough and has been ambulating in the room without much difficulty 02/02/2021 The patient was seen and examined in telemetry unit and in the Covid room He has been requiring more oxygen today to maintain saturation Has cough and has been trying to move around in the room with difficulty due to shortness of breath 02/03/2021 The patient was seen and examined in telemetry unit and in the Covid room His condition has not improved but has not deteriorated Still requiring 5 L of oxygen to maintain saturation denies any symptoms at rest Denies any abdominal pain, bloating and/or nausea or vomiting Review of Systems Review of Systems: All systems reviewed and are unremarkable except as noted below Respiratory: Minimal shortness of breath at rest Musculoskeletal: Generally weak Physical Exam Physical Exam: Sitting on a chair with minimal shortness of breath Constitutional: well developed, well nourished, + ill appearing and + obese Eyes: PERRL, conjunctivae normal, anicteric sclerae ENMT: external ear and nose normal, oropharynx normal Neck: trachea midline, no thyromegaly Respiratory: + respiratory distress (Minimal distress at rest) Auscultation: + diminished lung sounds and + crackles (Minimal crackles at the bases) Cardiovascular: Rate/Rhythm: regular rate and regular rhythm; not tachycardic Heart Sounds: normal S1 and normal S2; no murmur Extremities: + edema (Trace edema bilaterally) Gastrointestinal (Abdomen): Inspection/Auscultation: normal bowel sounds; abdomen not distended Percussion/Palpation: abdomen soft; abdomen nontender No tenderness in the right upper quadrant and Corrales sign is negative Musculoskeletal: No acute arthritis in any joint Psychiatric: A+Ox3, euthymic affect Lymphatic: no cervical or axillary lymphadenopathy Results & Data Results & Data ([facility]) Vital Signs (Past 12 Hours) Vital Signs Temp Pulse Pulse Resp BP Pulse Ox 02/03/21 11:50 36.4 C L 70 18 116/73 92 02/03/21 08:00 56 L 02/03/21 07:41 36.8 C 86 19 96/63 L 90 02/03/21 03:36 36.5 C 72 21 103/67 93 Laboratory Results [place] 02/03/21 06:23 Sodium 135 L Potassium 3.7 Chloride 98 Carbon Dioxide 32 BUN 26 H Creatinine 1.14 Glucose 104 H Calcium 8.8 Liver Function 02/03/21 Range/Units 06:23 Total Bilirubin 0.9 (0.2-1) mg/dl Direct Bilirubin 0.2 (0-0.2) mg/dl AST 214 H (15-37) U/L ALT 303 H (12-78) U/L Alkaline Phosphatase 92 (45-117) U/L Albumin 3.0 L (3.4-5.0) gm/dl Medications Administered Current Inpatient Medications Benzonatate (Benzonatate 100 Mg Capsule) 100 mg PO TID PRN PRN Reason: Cough Stop: 03/03/21 03:56 Last Admin: 02/02/21 04:31 Dose: 100 mg Documented by: Enoxaparin Sodium (Enoxaparin Inj 40 Mg/0.4 Ml Syr) 40 mg SQ Q24H KEEGAN Stop: 03/02/21 20:59 Last Admin: 02/02/21 20:00 Dose: 40 mg Documented by: Dexamethasone 6 mg/ Syringe 1.5 mls @ 1 mls/min IV DAILY KEEGAN Stop: 02/11/21 08:59 Last Admin: 02/03/21 09:01 Dose: 1 mls/min Documented by: Ondansetron HCl (Ondansetron Inj 2 Mg/Ml 2 Ml Vial) 4 mg IV Q6H PRN PRN Reason: Nausea Stop: 03/02/21 20:29 Phenol (Chloraseptic 1.4% Soln 180 Ml Btl) 1 sprays MT Q2H PRN PRN Reason: throat discomfort Stop: 03/03/21 03:57 Polyethylene Glycol (Polyethylene (Miralax) 17 Gm Pack) 17 gm PO DAILY PRN PRN Reason: Constipation Stop: 03/02/21 20:29
[2021-02-03] MEDS: ENOXAPARIN INJ 40 MG/0.4 ML SYR SQ SCH (20:34)
[2021-02-04 07:00] LABS: Albumin Level 2.8 gm/dl (3.4-5.0); BUN Creatinine Ratio 20.2 (10-20); Calcium 8.6 mg/dl (8.5-10.1); Creatinine Clr Calc Pharmacy 91.5 ml/min; Est GFR (African American) 84.1 ml/min; Est GFR (Non-African American) 72.5 ml/min; Potassium 3.8 mmol/L (3.5-5.1)
[2021-02-04 07:02] LABS: Albumin Globulin Ratio 0.7 (0.9-2); Globulin 3.8 gm/dl (2.5-4.0); Total Protein 6.6 gm/dl (6.4-8.2)
[2021-02-04] MEDS: dexAMETHasone 6 MG in SYRINGE 0 ML IV SCH (08:39)
--- NOTE | 2021-02-04 14:12 | Hospitalist Progress Note ---
Date of Service February 04, 2021 Assessment & Plan (1) Acute respiratory failure with hypoxia: (2) Pneumonia due to 2019 novel coronavirus: Plan: This is a 50-year-old male with PMH of prediabetes and dyslipidemia who presents with worsening dyspnea on exertion and hypoxia and was found to have covid pneumonia. Developed symptoms 12 days ago and had a positive Covid test last week on 01/25 Became dyspneic with exertion over past few days, hypoxic at 82% at PCP's office today Afebrile, no leukocytosis, CRP 7.42 Chest CTA with no evidence for pulmonary embolus. 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 No N/V or abdominal pain. +History of moderate alcohol use Monitor LFTs-LFTs remains elevated which could be secondary to fatty liver disease Will get hepatitis panel-hepatitis A, B and C are negative LFTs remains elevated and does not have any acute cholecystitis signs and or symptoms Ultrasound cannot be done and the high LFTs could be secondary to Covid 19 infection itself We will get Dev-Lloyd B virus and CMV virus serology Monitor LFTs-remains elevated Will get more markers and repeat tomorrow (4) Prediabetes: Plan: Diet controlled LFTs could be secondary to fatty liver (5) Dyslipidemia: Plan: Diet controlled DVT Ppx: SQ Lovenox Code status: FULL PCP: Lakia Dispo: Admitted to PCU Admission and Anticipated Discharge Date Admission Date: January 31, 2021 Subjective 02/01/2021 The patient was seen and examined in telemetry unit and in the Covid room He has been feeling much better today and is requiring about 5 L of oxygen to maintain saturation Has minimal cough and has been ambulating in the room without much difficulty 02/02/2021 The patient was seen and examined in telemetry unit and in the Covid room He has been requiring more oxygen today to maintain saturation Has cough and has been trying to move around in the room with difficulty due to shortness of breath 02/03/2021 The patient was seen and examined in telemetry unit and in the Covid room His condition has not improved but has not deteriorated Still requiring 5 L of oxygen to maintain saturation denies any symptoms at rest Denies any abdominal pain, bloating and/or nausea or vomiting 02/04/2021 The patient was seen and examined in telemetry unit and in the Covid room He has been feeling much better today and oxygen requirements has gone down to 4 L His cough is improved and physically he is feeling better Review of Systems Review of Systems: All systems reviewed and are unremarkable except as noted below Respiratory: Minimal shortness of breath at rest Musculoskeletal: Generally weak Physical Exam Physical Exam: Sitting on a chair with minimal shortness of breath Constitutional: well developed, well nourished, + ill appearing and + obese Eyes: PERRL, conjunctivae normal, anicteric sclerae ENMT: external ear and nose normal, oropharynx normal Neck: trachea midline, no thyromegaly Respiratory: + respiratory distress (Minimal distress at rest) Auscultation: + diminished lung sounds and + crackles (Minimal crackles at the bases) Cardiovascular: Rate/Rhythm: regular rate and regular rhythm; not tachycardic Heart Sounds: normal S1 and normal S2; no murmur Extremities: + edema (Trace edema bilaterally) Gastrointestinal (Abdomen): Inspection/Auscultation: normal bowel sounds; abdomen not distended Percussion/Palpation: abdomen soft; abdomen nontender Musculoskeletal: No acute arthritis in any joint Neurologic: Alert, awake and oriented x3. No focal sensory and motor deficit appreciated Psychiatric: A+Ox3, euthymic affect Lymphatic: no cervical or axillary lymphadenopathy Results & Data Results & Data ([facility]) Vital Signs (Past 12 Hours) Vital Signs Temp Pulse Pulse Resp BP Pulse Ox 02/04/21 12:06 37.0 C 68 18 104/67 92 02/04/21 08:18 36.8 C 82 18 127/83 91 02/04/21 07:00 76 02/04/21 03:06 37 C 66 18 127/83 94 Laboratory Results BMP 02/04/21 05:56 Sodium 136 Potassium 3.8 Chloride 99 Carbon Dioxide 33 H BUN 24 H Creatinine 1.18 Glucose 100 H Calcium 8.6 Liver Function 02/04/21 Range/Units 05:56 Total Bilirubin 1.0 (0.2-1) mg/dl AST 157 H (15-37) U/L ALT 325 H (12-78) U/L Alkaline Phosphatase 86 (45-117) U/L Albumin 2.8 L (3.4-5.0) gm/dl Medications Administered Current Inpatient Medications Benzonatate (Benzonatate 100 Mg Capsule) 100 mg PO TID PRN PRN Reason: Cough Stop: 03/03/21 03:56 Last Admin: 02/02/21 04:31 Dose: 100 mg Documented by: Enoxaparin Sodium (Enoxaparin Inj 40 Mg/0.4 Ml Syr) 40 mg SQ Q24H KEEGAN Stop: 03/02/21 20:59 Last Admin: 02/03/21 20:34 Dose: 40 mg Documented by: Dexamethasone 6 mg/ Syringe 1.5 mls @ 1 mls/min IV DAILY KEEGAN Stop: 02/11/21 08:59 Last Admin: 02/04/21 08:39 Dose: 1 mls/min Documented by: Ondansetron HCl (Ondansetron Inj 2 Mg/Ml 2 Ml Vial) 4 mg IV Q6H PRN PRN Reason: Nausea Stop: 03/02/21 20:29 Phenol (Chloraseptic 1.4% Soln 180 Ml Btl) 1 sprays MT Q2H PRN PRN Reason: throat discomfort Stop: 03/03/21 03:57 Polyethylene Glycol (Polyethylene (Miralax) 17 Gm Pack) 17 gm PO DAILY PRN PRN Reason: Constipation Stop: 03/02/21 20:29
[2021-02-04] MEDS: ENOXAPARIN INJ 40 MG/0.4 ML SYR SQ SCH (20:14)
[2021-02-05] MEDS: dexAMETHasone 6 MG in SYRINGE 0 ML IV SCH (08:50)
--- NOTE | 2021-02-05 11:30 | XRay Report ---
XR chest 1V portable CLINICAL HISTORY: Covid pneumonia TECHNIQUE: Single frontal radiograph of the chest was obtained. Comparison: Comparison is made to chest one view 01/31/2021 FINDINGS: No lines and tubes are seen. The cardiomediastinal silhouette is normal. Bilateral lower lung airspac e opacities are slightly more prominent than on prior exam. No evidence of pleural effusion or pneumo thorax. IMPRESSION: Bilateral lower lung predominant airspace opacities are slightly increased from prior exam, compatibl e with history of viral pneumonia. ACT 112: Negative or not required by law. Electronically signed by: Eric Beth M.D. 02/05/2021 11:29 AM
--- NOTE | 2021-02-05 13:24 | Hospitalist Progress Note ---
Date of Service February 05, 2021 Assessment & Plan (1) Acute respiratory failure with hypoxia: Plan: Secondary to Covid 19 pneumonia (2) Pneumonia due to 2019 novel coronavirus: Plan: This is a 50-year-old male with PMH of prediabetes and dyslipidemia who presents with worsening dyspnea on exertion and hypoxia and was found to have covid pneumonia. Developed symptoms 12 days ago and had a positive Covid test last week on 01/25 Became dyspneic with exertion over past few days, hypoxic at 82% at PCP's office today Afebrile, no leukocytosis, CRP 7.42 Chest CTA with no evidence for pulmonary embolus. 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 No N/V or abdominal pain. +History of moderate alcohol use Monitor LFTs-LFTs remains elevated which could be secondary to fatty liver disease Will get hepatitis panel-hepatitis A, B and C are negative LFTs remains elevated and does not have any acute cholecystitis signs and or symptoms Ultrasound cannot be done and the high LFTs could be secondary to Covid 19 infection itself We will get Dev-Lloyd B virus and CMV virus serology Monitor LFTs-remains elevated Will get more markers and repeat tomorrow-GI referral as an outpatient (4) Prediabetes: Plan: Diet controlled LFTs could be secondary to fatty liver (5) Dyslipidemia: Plan: Diet controlled DVT Ppx: SQ Lovenox Code status: FULL PCP: Lakia Dispo: Admitted to PCU Admission and Anticipated Discharge Date Admission Date: January 31, 2021 Subjective 02/01/2021 The patient was seen and examined in telemetry unit and in the Covid room He has been feeling much better today and is requiring about 5 L of oxygen to maintain saturation Has minimal cough and has been ambulating in the room without much difficulty 02/02/2021 The patient was seen and examined in telemetry unit and in the Covid room He has been requiring more oxygen today to maintain saturation Has cough and has been trying to move around in the room with difficulty due to shortness of breath 02/03/2021 The patient was seen and examined in telemetry unit and in the Covid room His condition has not improved but has not deteriorated Still requiring 5 L of oxygen to maintain saturation denies any symptoms at rest Denies any abdominal pain, bloating and/or nausea or vomiting 02/04/2021 The patient was seen and examined in telemetry unit and in the Covid room He has been feeling much better today and oxygen requirements has gone down to 4 L His cough is improved and physically he is feeling better 02/05/2021 The patient was seen and examined in telemetry unit and in the Covid room He has been feeling much better and is requiring 2 L of oxygen to maintain saturation His chest x-ray did show worsening of the pneumonia and he will not be going home Review of Systems Review of Systems: All systems reviewed and are unremarkable except as noted below Respiratory: Minimal shortness of breath at rest Musculoskeletal: Generally weak Physical Exam Physical Exam: Sitting on a chair with minimal or no shortness of breath Constitutional: well developed, well nourished, + ill appearing and + obese Eyes: PERRL, conjunctivae normal, anicteric sclerae ENMT: external ear and nose normal, oropharynx normal Neck: trachea midline, no thyromegaly Respiratory: + respiratory distress (Minimal distress at rest) Auscultation: + diminished lung sounds and + crackles (Minimal crackles at the bases) Cardiovascular: Rate/Rhythm: regular rate and regular rhythm; not tachycardic Heart Sounds: normal S1 and normal S2; no murmur Extremities: + edema (Trace edema bilaterally) Gastrointestinal (Abdomen): Inspection/Auscultation: normal bowel sounds; abdomen not distended Percussion/Palpation: abdomen soft; abdomen nontender Musculoskeletal: No acute arthritis in any joint Neurologic: Alert, awake and oriented x3. No focal sensory and/or motor deficit appreciated Psychiatric: A+Ox3, euthymic affect Lymphatic: no cervical or axillary lymphadenopathy Results & Data Results & Data ([facility]) Vital Signs (Past 12 Hours) Vital Signs Temp Pulse Pulse Resp BP Pulse Ox 02/05/21 13:13 36.9 C 86 16 105/66 90 02/05/21 08:55 68 16 93 02/05/21 08:19 36.4 C L 69 16 120/71 93 02/05/21 07:00 64 02/05/21 03:27 68 02/05/21 03:11 36.8 C 74 18 96/60 L 90 Medications Administered Current Inpatient Medications Benzonatate (Benzonatate 100 Mg Capsule) 100 mg PO TID PRN PRN Reason: Cough Stop: 03/03/21 03:56 Last Admin: 02/02/21 04:31 Dose: 100 mg Documented by: Enoxaparin Sodium (Enoxaparin Inj 40 Mg/0.4 Ml Syr) 40 mg SQ Q24H KEEGAN Stop: 03/02/21 20:59 Last Admin: 02/04/21 20:14 Dose: 40 mg Documented by: Dexamethasone 6 mg/ Syringe 1.5 mls @ 1 mls/min IV DAILY KEEGAN Stop: 02/11/21 08:59 Last Admin: 02/05/21 08:50 Dose: 1 mls/min Documented by: Ondansetron HCl (Ondansetron Inj 2 Mg/Ml 2 Ml Vial) 4 mg IV Q6H PRN PRN Reason: Nausea Stop: 03/02/21 20:29 Phenol (Chloraseptic 1.4% Soln 180 Ml Btl) 1 sprays MT Q2H PRN PRN Reason: throat discomfort Stop: 03/03/21 03:57 Polyethylene Glycol (Polyethylene (Miralax) 17 Gm Pack) 17 gm PO DAILY PRN PRN Reason: Constipation Stop: 03/02/21 20:29
[2021-02-05] MEDS: ENOXAPARIN INJ 40 MG/0.4 ML SYR SQ SCH (20:47)
[2021-02-06 08:05] LABS: Alanine Aminotransferase 252 U/L (12-78); Albumin Level 2.8 gm/dl (3.4-5.0); Aspartate Aminotransferase 60 U/L (15-37); BUN Creatinine Ratio 14.7 (10-20); Blood Urea Nitrogen 17 mg/dl (7-18); Calcium 9.1 mg/dl (8.5-10.1); Carbon Dioxide 30 mmol/L (21-32); Chloride 102 mmol/L (98-107); Creatinine Clr Calc Pharmacy 101.9 ml/min; Est GFR (African American) 86.7 ml/min; Est GFR (Non-African American) 74.8 ml/min; Glucose 95 mg/dl (70-99); Magnesium 2.4 mg/dl (1.8-2.4); Potassium 3.8 mmol/L (3.5-5.1); Sodium 139 mmol/L (136-145)
[2021-02-06 08:07] LABS: Alkaline Phosphatase 85 U/L (45-117); Bilirubin Direct < 0.1 mg/dl (0-0.2); Bilirubin,Total 0.6 mg/dl (0.2-1); Phosphorus 3.7 mg/dl (2.5-4.9); Total Protein 6.7 gm/dl (6.4-8.2)
[2021-02-06] MEDS: dexAMETHasone 6 MG in SYRINGE 0 ML IV SCH (08:45)
--- NOTE | 2021-02-06 13:27 | Hospitalist Progress Note ---
Date of Service February 06, 2021 Assessment & Plan (1) Acute respiratory failure with hypoxia: Plan: Secondary to Covid 19 pneumonia (2) Pneumonia due to 2019 novel coronavirus: Plan: This is a 50-year-old male with PMH of prediabetes and dyslipidemia who presents with worsening dyspnea on exertion and hypoxia and was found to have covid pneumonia. Developed symptoms 12 days ago and had a positive Covid test last week on 01/25 Became dyspneic with exertion over past few days, hypoxic at 82% at PCP's office today Afebrile, no leukocytosis, CRP 7.42 Chest CTA with no evidence for pulmonary embolus. 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 Clinically not any better and has been requiring up to 5 L of oxygen to maintain saturation His inflammatory markers are not greatly elevated We will give him another dose of Lasix today 02/03/2021 Clinically much better and oxygen requirements has gone down to 4 L Much better and oxygen requirements has gone down to 2 L We will get PT OT evaluation and possible to do steps O2 saturation test tomorro w prior to discharge Saturating normally on room air and does not require any oxygen with ambulation Symptomatically improved and will be sent home this afternoon (3) Abnormal LFTs: Plan: AST 134, ALT, possibly reactive in setting of covid. No N/V or abdominal pain. +History of moderate alcohol use Monitor LFTs-LFTs remains elevated which could be secondary to fatty liver disease Will get hepatitis panel-hepatitis A, B and C are negative LFTs remains elevated and does not have any acute cholecystitis signs and or symptoms Ultrasound cannot be done and the high LFTs could be secondary to Covid 19 infection itself We will get Dev-Lloyd B virus and CMV virus serology Monitor LFTs-remains elevated Will get more markers and repeat tomorrow-GI referral as an outpatient Liver function is improved a lot We will advised PCP to repeat a liver function test and if is still evaded a GI referral would be appropriate (4) Prediabetes: Plan: Diet controlled LFTs could be secondary to fatty liver (5) Dyslipidemia: Plan: Diet controlled DVT Ppx: SQ Lovenox Code status: FULL PCP: Lakia Dispo: Admitted to PCU Admission and Anticipated Discharge Date Admission Date: January 31, 2021 Subjective 02/01/2021 The patient was seen and examined in telemetry unit and in the Covid room He has been feeling much better today and is requiring about 5 L of oxygen to maintain saturation Has minimal cough and has been ambulating in the room without much difficulty 02/02/2021 The patient was seen and examined in telemetry unit and in the Covid room He has been requiring more oxygen today to maintain saturation Has cough and has been trying to move around in the room with difficulty due to shortness of breath 02/03/2021 The patient was seen and examined in telemetry unit and in the Covid room His condition has not improved but has not deteriorated Still requiring 5 L of oxygen to maintain saturation denies any symptoms at rest Denies any abdominal pain, bloating and/or nausea or vomiting 02/04/2021 The patient was seen and examined in telemetry unit and in the Covid room He has been feeling much better today and oxygen requirements has gone down to 4 L His cough is improved and physically he is feeling better 02/05/2021 The patient was seen and examined in telemetry unit and in the Covid room He has been feeling much better and is requiring 2 L of oxygen to maintain saturation His chest x-ray did show worsening of the pneumonia and he will not be going home 02/06/2021 The patient was seen and examined in telemetry unit and in the Covid room He has been feeling much better and has been saturating normally on room air He passed that to a step O2 saturation test and he will be discharged home this afternoon Review of Systems Review of Systems: All systems reviewed and are unremarkable except as noted below Respiratory: No shortness of breath at rest Physical Exam Physical Exam: Sitting on a chair with no shortness of breath Constitutional: well developed, well nourished, + ill appearing and + obese Eyes: PERRL, conjunctivae normal, anicteric sclerae ENMT: external ear and nose normal, oropharynx normal Neck: trachea midline, no thyromegaly Respiratory: no respiratory distress (Minimal distress at rest) Auscultation: + diminished lung sounds and + crackles (Minimal crackles at the bases) Cardiovascular: Rate/Rhythm: regular rate and regular rhythm; not tachycardic Heart Sounds: normal S1 and normal S2; no murmur Extremities: + edema (Trace edema bilaterally) Gastrointestinal (Abdomen): Inspection/Auscultation: normal bowel sounds; abdomen not distended Percussion/Palpation: abdomen soft; abdomen nontender Musculoskeletal: No acute arthritis in any joint Neurologic: Alert, awake and oriented x3. No focal sensory or motor deficit appreciated Psychiatric: A+Ox3, euthymic affect Lymphatic: no cervical or axillary lymphadenopathy Results & Data Results & Data ([facility]) Vital Signs (Past 12 Hours) Vital Signs Temp Pulse Pulse Pulse Pulse Pulse Resp 02/06/21 12:50 36.8 C 87 18 02/06/21 12:30 02/06/21 08:16 109 H 95 H 88 02/06/21 08:00 63 02/06/21 06:36 37.0 C 64 20 02/06/21 03:23 36.6 C 63 19 Resp Resp Resp BP Pulse Ox Pulse Ox Pulse Ox 02/06/21 12:50 117/77 92 02/06/21 12:30 91 02/06/21 08:16 16 16 14 89 L 90 02/06/21 08:00 02/06/21 06:36 96/62 L 90 02/06/21 03:23 103/72 94 Pulse Ox 02/06/21 12:50 02/06/21 12:30 02/06/21 08:16 90 02/06/21 08:00 02/06/21 06:36 02/06/21 03:23 Laboratory Results [facility] 02/06/21 06:52 Sodium 139 Potassium 3.8 Chloride 102 Carbon Dioxide 30 BUN 17 Creatinine 1.15 Glucose 95 Calcium 9.1 Liver Function 02/06/21 Range/Units 06:52 Total Bilirubin 0.6 (0.2-1) mg/dl Direct Bilirubin < 0.1 (0-0.2) mg/dl AST 60 H (15-37) U/L ALT 252 H (12-78) U/L Alkaline Phosphatase 85 (45-117) U/L Albumin 2.8 L (3.4-5.0) gm/dl Medications Administered Current Inpatient Medications Benzonatate (Benzonatate 100 Mg Capsule) 100 mg PO TID PRN PRN Reason: Cough Stop: 03/03/21 03:56 Last Admin: 10/28/21 04:31 Dose: 100 mg Documented by: Enoxaparin Sodium (Enoxaparin Inj 40 Mg/0.4 Ml Syr) 40 mg SQ Q24H KEEGAN Stop: 03/02/21 20:59 Last Admin: 02/05/21 20:47 Dose: Not Given Documented by: Dexamethasone 6 mg/ Syringe 1.5 mls @ 1 mls/min IV DAILY KEEGAN Stop: 02/11/21 08:59 Last Admin: 02/06/21 08:45 Dose: 1 mls/min Documented by: Ondansetron HCl (Ondansetron Inj 2 Mg/Ml 2 Ml Vial) 4 mg IV Q6H PRN PRN Reason: Nausea Stop: 03/02/21 20:29 Phenol (Chloraseptic 1.4% Soln 180 Ml Btl) 1 sprays MT Q2H PRN PRN Reason: throat discomfort Stop: 03/03/21 03:57 Polyethylene Glycol (Polyethylene (Miralax) 17 Gm Pack) 17 gm PO DAILY PRN PRN Reason: Constipation Stop: 03/02/21 20:29
--- NOTE | 2021-02-07 07:40 | Discharge Summary ---
Date of Service February 07, 2021 Admission HPI Per Admitting Provider This is a 50-year-old male with PMH of prediabetes and dyslipidemia who presents with worsening dyspnea on exertion and hypoxia. and children whom he lives with have had Covid recently. Patient became symptomatic on 12 days ago and had a positive Covid test last week on 01/25. First developed severe headache and fever. Headache has resolved but fever and chills have persisted and patient has since developed generalized weakness, had difficulty sleeping and reduced appetite. Has been tolerating Ensure shakes and trying to stay hydrated with water and Gatorade. Has been alternating Tylenol and Advil for fevers. Also endorses dry cough and dyspnea on exertion over the past 4 days. Still has sense of taste and smell. Went to see PCP earlier today and was found to be hypoxic at 82% on room air. Was sent to ED for further evaluation. Does not take any medications regularly. Did not receive Covid vaccine. Denies any lightheadedness, chest pain, palpitations, wheezing, dysuria, diarrhea or co nstipation. Admission Exam Per Admitting Provider NC in place, NAD Card: normal S1/S2, no murmur Lungs: fair air entry b/l Abd: ND, soft, NT LE: no edema Psych: AAOx3 Principal Diagnosis Pneumonia secondary to COVID-19 virus infection, elevated liver enzymes, hyperlipidemia Discharge Exam Sitting on a chair with no shortness of breath Constitutional well developed, well nourished, + ill appearing and + obese Eyes PERRL, conjunctivae normal, anicteric sclerae ENMT external ear and nose normal, oropharynx normal Neck trachea midline, no thyromegaly Respiratory no respiratory distress (Minimal distress at rest) Auscultation: + diminished lung sounds and + crackles (Minimal crackles at the bases) Cardiovascular Rate/Rhythm: regular rate and regular rhythm; not tachycardic Heart Sounds: normal S1 and normal S2; no murmur Extremities: + edema (Trace edema bilaterally) Gastrointestinal (Abdomen) Inspection/Auscultation: normal bowel sounds; abdomen not distended Percussion/Palpation: abdomen soft; abdomen nontender Psychiatric A+Ox3, euthymic affect Lymphatic no cervical or axillary lymphadenopathy Discharge Data Allergies Allergy/AdvReac Type Severity Reaction Status Date / Time No Known Allergies Allergy Unverified 03/08/17 18:52 Consultations 01/31/21 15:31 ED Decision to Admit Stat Ordered Studies 01/31/21 14:20 CT angio chest PE protocol Stat Hospital Course (1) Acute respiratory failure with hypoxia: Secondary to Covid 19 pneumonia (2) Pneumonia due to 2019 novel coronavirus: This is a 50-year-old male with PMH of prediabetes and dyslipidemia who presents with worsening dyspnea on exertion and hypoxia and was found to have covid pneumonia. Developed symptoms 12 days ago and had a positive Covid test last week on 01/25 Became dyspneic with exertion over past few days, hypoxic at 82% at PCP's office today Afebrile, no leukocytosis, CRP 7.42 Chest CTA with no evidence for pulmonary embolus. Excessive ground glass airspace opacities seen throughout the lungs consistent with a multifocal viral pneumonia Given dexamethasone IV 6mg, plan to continue daily, outside the window for Remdesivir, supplemental O2 Remdesivir was not given due to hepatic impairment and also does not meet the criteria Clinically better and will give a small dose of Lasix to keep him on the drier and pulverizer tender side Clinically not any better and has been requiring up to 5 L of oxygen to maintain saturation His inflammatory markers are not greatly elevated We will give him another dose of Lasix today 02/03/2021 Clinically much better and oxygen requirements has gone down to 4 L Much better and oxygen requirements has gone down to 2 L We will get PT OT evaluation and possible to do steps O2 saturation test tomorrow prior to discharge Saturating normally on room air and does not require any oxygen with ambulation Symptomatically improved and will be sent home this afternoon (3) Abnormal LFTs: AST 134, ALT, possibly reactive in setting of covid. No N/V or abdominal pain. +History of moderate alcohol use Monitor LFTs-LFTs remains elevated which could be secondary to fatty liver disease Will get hepatitis panel-hepatitis A, B and C are negative LFTs remains elevated and does not have any acute cholecystitis signs and or symptoms Ultrasound cannot be done and the high LFTs could be secondary to Covid 19 infection itself We will get Dev-Lloyd B virus and CMV virus serology Monitor LFTs-remains elevated Will get more markers and repeat tomorrow-GI referral as an outpatient Liver function is improved a lot We will advised PCP to repeat a liver function test and if is still evaded a GI referral would be appropriate (4) Prediabetes: Diet controlled LFTs could be secondary to fatty liver (5) Dyslipidemia: Diet controlled DVT Ppx: SQ Lovenox Code status: FULL PCP: Lakia Dispo: Admitted to PCU Total Time Total Time Spent Total Time Spent (In Minutes): 35 minutes Discharge Plan Discharge Items Patient Disposition: Home - Self-Care Reason For Visit: COVID PNA Discharge Diagnosis: Pneumonia secondary to COVID-19 virus infection, elevated liver enzymes, hyperlipidemia Condition on Discharge: Good Activity: Resume your previous activity Non-emergency contact: Primary Care Provider Call non-emergency contact if: you have any medication questions and your symptoms worsen Follow-up/Referrals: Teodoro Dorman MD [Primary Care Provider] - 02/10/21 10:40 am (Date & Time 02/10/2021 10:40 AM Provider Teodoro Dorman MD Department Family Practice [facility] PLEASE NOTE THAT THIS IS A TELEMEDICINE APPOINTMENT. PLEASE FOLLOW THE INSTRUCTIONS PROVIDED IN YOUR EMAIL. IF YOU HAVE ANY QUESTIONS REGARDING THIS APPOINTMENT, PLEASE CALL ) Diet: Regular Addtl Attending Provider Instructions: Please take precautions to avoid fall Take it easy for the next few days Finish the course of dexamethasone Try some bunc-fga-neulzav cough medications Please have your liver function tested during the visit with your primary care physician Please follow the isolation protocol as per CDC guideline until 02/10/2021: Home Isolation COVID-19 Instructions The following information about Home Isolation is from the CDC Website: https://www.cdc.gov/coronavirus/2019-ncov/hcp/qvfxydbu-kkwujpy-tabwjx.html Stay home except to get medical care People who are mildly ill with COVID-19 are able to isolate at home during their illness. You should restrict activities outside your home, except for getting medical care. Do not go to work, school, or public areas. Avoid using public transportation, ride-sharing, or taxis. Separate yourself from other people and animals in your home People: As much as possible, you should stay in a specific room and away from other people in your home. Also, you should use a separate bathroom, if available. Animals: You should restrict contact with pets and other animals while you are sick with COVID-19, just like you would around other people. Although there have not been reports of pets or other animals becoming sick with COVID-19, it is still recommended that people sick with COVID-19 limit contact with animals until more information is known about the virus. When possible, have another member of your household care for your animals while you are sick. If you are sick with COVID-19, avoid contact with your pet, including petting, snuggling, being kissed or licked, and sharing food. If you must care for your pet or be around animals while you are sick, wash your hands before and after you interact with pets and wear a face mask. Call ahead before visiting your doctor If you have a medical appointment, call the healthcare provider and tell them that you have or may have COVID-19. This will help the healthcare providers office take steps to keep other people from getting infected or exposed. Wear a face mask You should wear a face mask when you are around other people (e.g., sharing a room or vehicle) or pets and before you enter a healthcare providers office. If you are not able to wear a face mask (for example, because it causes trouble breathing), then people who live with you should not stay in the same room with you, or they should wear a face mask if they enter your room. Cover your coughs and sneezes Cover your mouth and nose with a tissue when you cough or sneeze. Throw used tissues in a lined trash can. Immediately wash your hands with soap and water for at least 20 seconds or, if soap and water are not available, clean your hands with an alcohol-based hand core paster that contains at least 60% alcohol. Clean your hands often Wash your hands often with soap and water for at least 20 seconds, especially after blowing your nose, coughing, or sneezing; going to the bathroom; and before eating or preparing food. If soap and water are not readily available, use an alcohol-based hand core paster with at least 60% alcohol, covering all surf aces of your hands and rubbing them together until they feel dry. Soap and water are the best option if hands are visibly dirty. Avoid touching your eyes, nose, and mouth with unwashed hands. Avoid sharing personal household items You should not share dishes, drinking glasses, cups, eating utensils, towels, or bedding with other people or pets in your home. After using these items, they should be washed thoroughly with soap and water. Clean all high-touch surfaces everyday High touch surfaces include counters, tabletops, doorknobs, bathroom fixtures, toilets, phones, keyboards, tablets, and bedside tables. Also, clean any surfaces that may have blood, stool, or body fluids on them. Use a household cleaning spray or wipe, according to the label instructions. Labels contain instructions for safe and effective use of the cleaning product including precautions you should take when applying the product, such as wearing gloves and making sure you have good ventilation during use of the product. Monitor your symptoms Seek prompt medical attention if your illness is worsening (e.g., difficulty breathing).Beforeseeking care, call your healthcare provider and tell them that you have, or are being evaluated for, COVID-19. Put on a face mask before you enter the facility. These steps will help the healthcare providers office to keep other people in the office or waiting room from getting infected or exposed. Ask your healthcare provider to call the local or state health department. Persons who are placed under active monitoring or facilitated self- monitoring should follow instructions provided by their local health department or occupational health professionals, as appropriate. When working with your local health department check their available hours. If you have a medical emergency and need to call 911, notify the dispatch personnel that you have, or are being evaluated for COVID-19. If possible, put on a face mask before emergency medical services arrive. Discontinuing home isolation Patients with confirmed COVID-19 should remain under home isolation precautions until the risk of secondary transmission to others is thought to be low. The decision to discontinue home isolation precautions should be made on a [id number] basis, in consultation with healthcare providers and state and local health departments. Pending Studies at Discharge: No Stand-Alone Forms: [employer], Smoking Cessation Medications and DC Order Prescriptions: New dexamethasone 6 mg tablet 6 mg PO DAILY Qty: 5 RF: 0 Discharge Orders: Discharge Order (Routine); Ordered 02/06/21 Ordered By: Cady Holly Admission Data Admit Date/Time: 01/31/21 15:44 Attending Provider: Cady Holly Admit Provider: Frank Samaniego Primary Care Provider: Teodoro Dorman Other Providers: Frank Samaniego Other Interventions: Discharge Summary Assessment (RN) Last Done: 02/06/21 14:40
== END 2021-02-06 15:07 | disposition home or self-care (01) | DRG 177 ==
LOC: ED 13:02 → 2E 15:44 → SUATTDRO 15:44 → 2E 19:09